=== PATIENT | female | born 1985 | race Caucasian/White ===

== ENCOUNTER 2017-02-01 18:41 | Observation (INO) ==
[2017-02-01 19:16] LABS: URINE CULTURE PL NEEDED? NO
[2017-02-01 19:30] LABS: BILIRUBIN URINE NEGATIVE (NEGATIVE); BLOOD URINE NEGATIVE (NEGATIVE); CLARITY CLEAR (CLEAR); COLOR YELLOW; LEUKOCYTES URINE TRACE (NEGATIVE); NITRITE URINE NEGATIVE (NEGATIVE); PROTEIN URINE TRACE mg/dL (NEGATIVE); SP GRAVITY URINE 1.005; URINE SOURCE CLEAN CATCH
[2017-02-01 19:31] LABS: URINE EPITHELIAL CELLS <10 /HPF (<10); URINE RBC <10 /HPF (<10); URINE WBC <10 /HPF (<10); UROBILINOGEN URINE 3+(8 mg/dL)
[2017-02-01 19:36] LABS: MANUAL DIFF NEEDED? NO
[2017-02-01 19:39] LABS: BASO% 0.1 % (0.0-0.8); EOS# 0.02 X1000 (0.0-0.7); EOS% 0.2 % (0.0-10.0); HEMATOCRIT 46.2 % (37.0-47.0); HEMOGLOBIN 15.9 g/dL (12.0-16.0); IMM GRAN# 0.02 X1000 (0.0-0.04); IMM GRAN% 0.2 % (0.0-0.5); LYMPH# 1.45 X1000 (1.2-3.4); LYMPH% 12.3 % (20.5-51.1); MCH 28.3 PG (27-31); MCHC 34.4 g/dL (33-37); MCV 82.2 FL (81-99); MONO# 0.53 X1000 (0.11-0.59); MONO% 4.5 % (1.7-9.3); MPV 9.3 FL (7.4-10.4); NEUT% 82.7 % (42.2-75.2); PLT 301 X1000 (130-400); RBC 5.62 XMIL (4.2-5.4)
[2017-02-01 20:02] LABS: AGAP 12; ALBUMIN 3.7 g/dL (3.5-5.0); ALKALINE PHOSPHATASE 88 U/L (32-104); AMYLASE 23 U/L (20-200); BUN 11 mg/dL (8-22); CALCIUM 9.1 mg/dL (8.8-10.2); CHLORIDE 95 mmol/L (98-107); COSMO 275; GOT 12 U/L (10-30); GPT 14 U/L (10-36); LIPASE 12 U/L (13-60); POTASSIUM 3.5 mmol/L (3.5-5.1); SODIUM 133 mmol/L (136-145); TCO2 26 mmol/L (25-35); TOTAL PROTEIN 7.7 g/dL (6.3-8.3)
--- NOTE | 2017-02-01 20:35 | Diag Imaging Result Doc PS360 ---
EXAM: FLAT/UPRIGHT ABD/1 VIEW CHEST HISTORY: abd pain TECHNIQUE: Four views COMPARISON: None. FINDINGS: The lungs are well expanded. No cardiomegaly. No pneumonia. No free air beneath the diaphragm. Mild scoliosis. No bowel obstruction. There is stool throughout the colon. No abnormal abdominal calcifications. IMPRESSION: Mild constipation Electronically signed by Heath Drake 02/01/2017 8:33 PM
--- NOTE | 2017-02-01 20:44 | PROVIDER DOCUMENTATION ---
HPI-Abdominal Pain/GI Problem - General Chief Complaint: Abdominal Pain Stated Complaint: ABD PAIN Time Seen by Provider: 02/01/17 20:15 Source: patient Allergies/Adverse Reactions: Patient Allergies Allergy/AdvReac Type Severity Reaction Status Date / Time Penicillins AdvReac HIVES Verified 02/01/17 19:09 Home Medications: Home Medication List Medication Instructions Recorded Confirmed Last Taken Type NK [No Home Medications] 02/01/17 02/01/17 Unknown History - History of Present Illness-ABD Nature of Presenting Problems: Patient is a pleasant 31 yrs old lady who has come with abdominal pain and diarrhea. She states she has been having abdominal pain since morning. It is cramping like in nature. It is in the epigastric region and umbilical. It is cramping like in nature , got sharp later. It is 5/10 in intensity now but goes to 10/10. No relieving factor noticed. Gets worse by movement or eating drinking something . No N/V. No other complaints. Abdominal Pain Onset Location: reports: epigastric, periumbilical Pain Radiation: reports: no radiation Quality of Pain: reports: aching, cramping, sharp Severity in ED: reports: moderate Onset/Duration: reports: gradual, 4-6 hours ago Timing: reports: still present Activities at Onset: reports: none Exposure to sick contacts?: No Modifying Factors: improves with: nothing Associated Symptoms: reports: diarrhea. denies: fever/chills, nausea, vomiting Last BM: this afternoon Review of Systems - Adult - REVIEW OF SYSTEMS - ADULT Constitutional: reports: no symptoms reported Eyes: reports: no symptoms reported Ears, Nose, Mouth & Throat: reports: no symptoms reported Cardiovascular: reports: no symptoms reported Respiratory: reports: no symptoms reported Gastrointestinal: reports: see HPI Genitourinary: reports: no symptoms reported Musculoskeletal: reports: no symptoms reported Integumentary: reports: no symptoms reported Neurological: reports: no symptoms reported Psychiatric: reports: no symptoms reported Endocrine: reports: no symptoms reported Hematologic/Lymphatic: reports: no symptoms reported Allergic/Immunologic: reports: no symptoms reported Past History - Adult - PAST MEDICAL HISTORY-ADULT Review of Records: reports: Nursing Assessment Review Major Childhood Illnesses: reports: denies history Cardiovascular: reports: denies history Respiratory: reports: denies history Gastrointestinal: reports: denies history Obstetrical/Gynecological: reports: denies history Genitourinary: reports: denies history Musculoskeletal: reports: denies history Neurological: reports: denies history Psychiatric: reports: denies history Endocrine/Immune: reports: denies history - SOCIAL HISTORY Smoking: denies Substance Use: none/never Alcohol Use Frequency: never Physical Exam-General - CONSTITUTIONAL General Appearance: appears well, alert, moderate distress - EYES Eyes: PERRL/EOMI, pink conjunctivae - HEAD, EARS, NOSE, MOUTH & THROAT HENMT: normocephalic/atraumatic, moist mucous membranes - NECK Neck: non-tender, full range of motion, supple - RESPIRATORY Respiratory: chest non-tender, lungs clear, normal breath sounds - CARDIOVASCULAR Cardiovascular: normal peripheral pulses, regular rate, rhythm - GASTROINTESTINAL (ABDOMEN) Abdominal Exam: soft, no organomegaly, no pulsatile mass, other (Tenderness noted in the epigastric region .) - LYMPHATIC Lymphatic: no adenopathy - MUSCULOSKELETAL Back Exam: normal inspection, no CVA tenderness Extremity: normal range of motion, non-tender - SKIN Integumentary: normal color, normal turgor, warm/dry - NEUROLOGIC Neurologic: grossly normal, no motor/sensory deficits - PSYCHIATRIC Psych/Mental Status: normal mood/affect, normal thought content, normal thought process Progress - PLAN OF CARE/RESULTS Progress/Plan/Lab Results: Vital Signs - 8 hr 02/01/17 19:05 Temperature 98 F Pulse Rate 114 H Respiratory Rate 18 Blood Pressure 138/89 O2 Sat by Pulse Oximetry 98 Laboratory Results - last 24 hr 02/01/17 02/01/17 02/01/17 19:10 19:10 19:26 WBC RBC Hgb Hct MCV MCH MCHC RDW Std Deviation Plt Count MPV Immature Gran % (Auto) Neut % (Auto) Lymph % (Auto) [place] % (Auto) Eos % (Auto) Baso % (Auto) Immature Gran # (Auto) Neut # (Auto) Lymph # (Auto) [place] # (Auto) Eos # (Auto) Baso # (Auto) Sodium 133 L Potassium 3.5 Chloride 95 L Carbon Dioxide 26 Anion Gap 12 BUN 11 Creatinine 0.6 Estimated GFR/1.73 m2 > 60 BUN/Creatinine Ratio 18 Glucose 263 H Calculated Osmolality 275 Calcium 9.1 Total Bilirubin 0.80 AST 12 ALT 14 Alkaline Phosphatase 88 Total Protein 7.7 Albumin 3.7 Globulin 4.0 Albumin/Globulin Ratio 1.0 Amylase 23 Lipase 12 L Urine Source CLEAN CATCH Urine Color YELLOW Urine Clarity CLEAR Urine pH 7.0 Ur Specific [place] 1.005 Urine Protein TRACE A Urine Ketones 2+(Moderate) A Urine Blood NEGATIVE Urine Nitrite NEGATIVE Urine Bilirubin NEGATIVE Urine Urobilinogen 3+(8 mg/dL) Urine Microscopic RBC <10 Urine WBC TRACE A Urine Microscopic WBC <10 Ur Epithelial Cells <10 Urine Glucose 3+(500 mg/dL) A Urine Test NEGATIVE 02/01/17 19:26 WBC 11.80 H RBC 5.62 H Hgb 15.9 Hct 46.2 MCV 82.2 MCH 28.3 MCHC 34.4 RDW Std Deviation 12.6 Plt Count 301 MPV 9.3 Immature Gran % (Auto) 0.2 Neut % (Auto) 82.7 H Lymph % (Auto) 12.3 L [place] % (Auto) 4.5 Eos % (Auto) 0.2 Baso % (Auto) 0.1 Immature Gran # (Auto) 0.02 Neut # (Auto) 9.77 H Lymph # (Auto) 1.45 [place] # (Auto) 0.53 Eos # (Auto) 0.02 Baso # (Auto) 0.01 Sodium Potassium Chloride Carbon Dioxide Anion Gap BUN Creatinine Estimated GFR/1.73 m2 BUN/Creatinine Ratio Glucose Calculated Osmolality Calcium Total Bilirubin AST ALT Alkaline Phosphatase Total Protein Albumin Globulin Albumin/Globulin Ratio Amylase Lipase Urine Source Urine Color Urine Clarity Urine pH Ur Specific [place] Urine Protein Urine Ketones Urine Blood Urine Nitrite Urine Bilirubin Urine Urobilinogen Urine Microscopic RBC Urine WBC Urine Microscopic WBC Ur Epithelial Cells Urine Glucose Urine Test Orders Category Date Time Status FLAT/UPRIGHT ABD/1 VIEW CHEST [RAD] Stat Exams 02/01/17 19:10 Completed AMYLASE [CHEM] Stat Lab 02/01/17 19:26 Completed CBC WITH DIFF [HEME] Stat Lab 02/01/17 19:26 Completed COMPREHENSIVE METABOLIC PANEL [CHEM] Stat Lab 02/01/17 19:26 Completed LIPASE [CHEM] Stat Lab 02/01/17 19:26 Completed TEST-URINE [PREG] Stat Lab 02/01/17 19:[address] W/POSS RFLX CULT [URINALYSIS] Stat Lab 02/01/17 19:10 Completed Lipase is significantly elevated. CT abd shows possible pancreatitis along with renal stone and other findings. Started on IV fluids . NPO. Admitting to inpatient. Starting on Zosyn per Dr. Sánchez request. Result Diagrams: 02/01/17 19:26 02/01/17 19:26 Departure - Departure Date of Disposition Decision: 02/01/17 Time of Disposition Decision: 22:06 DIAGNOSIS: Pancreatitis Disposition: ADMITTED INPATIENT 09 Certified Medical Emergency: Emergent Condition: Stable Referrals and Follow-Ups: Sreekanth Regan MD [Primary Care Provider] - - Critical Care Note This patient required my direct & personal management of CC.: No Attestation - Physician/ NINA Attestation Patient care was provided by Advanced Practice Provider:: No The physician spent face to face time with patient:: Yes Advanced Practice Provider documentation review:: Supervising physician onsite and consulted in the evaluation and care of this patient. The physician did have a face to face encounter with the patient.
[2017-02-01] MEDS ORDERED: DILAUDID IM ONE (20:48)
[2017-02-01] MEDS ORDERED: ZOFRAN PO ONE (20:48)
[2017-02-01] MEDS ORDERED: ZOFRAN ODT ONE (20:55)
--- NOTE | 2017-02-01 21:27 | Diag Imaging Result Doc PS360 ---
EXAM: CT ABDOMEN/PELVIS W/O CONTRAST HISTORY: abd pain TECHNIQUE: CT abdomen and pelvis without contrast. Dose reduction protocol. COMPARISON: None. FINDINGS: Normal noncontrasted liver, spleen, pancreas, gallbladder, and adrenal glands. No renal stones or hydronephrosis. Normal aorta. Normal appendix. No abscess. Mild distention to several small bowel loops in the left upper abdomen. There is stool throughout the colon. The urinary bladder is only mildly distended. Normal uterus. A small amount of free fluid is found in the pelvis. Neither ovary is enlarged. Mild scoliosis IMPRESSION: 1.Dilated small bowel loops filled with air and fluid suspicious for enteritis 2.No renal stones or hydronephrosis Electronically signed by Heath Drake 02/01/2017 9:24 PM
[2017-02-01] MEDS ORDERED: DILAUDID IM PRN ×2 (22:07→22:32)
[2017-02-01] MEDS ORDERED: NS 1,000 ML IV ONE ×2 (22:07→22:28)
[2017-02-01] MEDS ORDERED: ZOFRAN ODT PO ONE (22:29)
[2017-02-01] MEDS ORDERED: LEVAQUIN 500 MG/D5W 500 MG/100 ML IVPB IV SCH (22:45)
[2017-02-02] MEDS: ZOFRAN IV PRN ×4 (06:09→23:24)
[2017-02-02] MEDS ORDERED: DILAUDID IM PRN (06:26)
[2017-02-02] MEDS: TORADOL IV PRN ×3 (08:50→23:24)
[2017-02-02 09:12] LABS: HEMATOCRIT 40.3 % (37.0-47.0); HEMOGLOBIN 13.7 g/dL (12.0-16.0); MCH 28.2 PG (27-31); MCV 82.9 FL (81-99); MPV 9.3 FL (7.4-10.4); RBC 4.86 XMIL (4.2-5.4)
[2017-02-02 09:22] LABS: HEMOGLOBIN A1C 10.4 % (4.8-6.0)
[2017-02-02 09:32] LABS: AGAP 10; ALBUMIN 3.3 g/dL (3.5-5.0); ALKALINE PHOSPHATASE 68 U/L (32-104); AMYLASE 35 U/L (20-200); BUN 12 mg/dL (8-22); CALCIUM 8.3 mg/dL (8.8-10.2); CHLORIDE 101 mmol/L (98-107); COSMO 282; GOT 8 U/L (10-30); GPT 10 U/L (10-36); LIPASE 26 U/L (13-60); POTASSIUM 3.3 mmol/L (3.5-5.1); SODIUM 136 mmol/L (136-145); TCO2 25 mmol/L (25-35); TOTAL PROTEIN 6.6 g/dL (6.3-8.3)
[2017-02-02] MEDS ORDERED: PHENERGAN IV PRN (17:02)
[2017-02-02] MEDS ORDERED: SODIUM CHLORIDE 0.9% INJ PRN (17:02)
[2017-02-02] MEDS: NS 1,000 ML IV SCH (17:30)
[2017-02-02] MEDS: FLAGYL 500 MG/NS 500 MG/100 ML IVPB IV SCH ×2 (17:30→23:24)
[2017-02-02] MEDS ORDERED: PROTONIX IV SCH (18:00)
[2017-02-02] MEDS ORDERED: LEVAQUIN 750 MG/D5W 750 MG/150 ML IVPB IV SCH (18:00)
[2017-02-02] MEDS ORDERED: SODIUM CHLORIDE 0.9% INJ SCH (18:00)
[2017-02-02] MEDS: HUMALOG DOSE (PARKWAY) SUBQ SCH (20:00)
--- NOTE | 2017-02-02 22:30 | HISTORY AND PHYSICAL ---
CHIEF COMPLAINT: Abdominal pain and diarrhea. HISTORY OF PRESENT ILLNESS: This is a 31-year-old female who presented to the emergency room complaining of about 12 hours of abdominal pain and diarrhea. She actually described this pain as cramping in nature radiating from epigastric to the umbilical area. She rated it as a 5/10 to 10/10 prior to relief after pain medication. She did state that this pain does increase with movement or any p.o. intake. She has accompanying symptoms of diarrhea. She denied any black or bloody vomitus, black or bloody stools. She was found to have a white count of 11.8. CT of the abdomen and pelvis was performed in the emergency room and she was found to have dilated small bowel loops filled with air and fluid suspicious for enteritis. She is being admitted for further evaluation and treatment. PAST MEDICAL HISTORY: 1. Bipolar disorder. 2. Noncompliance. PAST SURGICAL HISTORY: . Tubal ligation. Social History SOCIAL HISTORY: She denies alcohol, tobacco, or illicit drug use. ALLERGIES: Penicillin which causes hives. HOME MEDICATIONS: Denies. REVIEW OF SYSTEMS: A 14 point review of systems is discussed with patient with pertinent positives stated in HPI. She denies chest pain, palpitations, dizziness, syncope, black or bloody vomitus, black or bloody stools, any hematuria, dysuria, frequency, urgency. PHYSICAL EXAMINATION: GENERAL: This is a 31-year-old female who is sitting in the bed, in no distress. VITAL SIGNS: Blood pressure is 109/65, a heart rate of 85, respirations are 20 , temperature is 97.9 degrees with room air saturations 97-98%. HEENT: Head is normocephalic, atraumatic. Pupils equal, round, react to light. EOMs are intact. Sclerae anicteric. Mucous membranes are dry. NECK: Supple. Trachea midline. CARDIOVASCULAR: Regular rate and rhythm. S1, S2 appreciated. PULMONARY: Breath sounds are clear. No increased work of breathing noted. GASTROINTESTINAL: Abdomen is soft, nondistended, with some epigastric tenderness. Bowel sounds are present in all 4 quadrants. BACK: No CVAT. No spine tenderness. MUSCULOSKELETAL: Good range of motion of joints. EXTREMITIES: No clubbing, cyanosis, or edema. Calves nontender. Pulses are palpable x4. NEUROLOGIC: She is alert and oriented x3. DIAGNOSTICS: WBC is 11.8 with hemoglobin 15.9, hematocrit 46.2, platelets of 301,000. Sodium is 133, potassium 3.5, BUN 11, creatinine 0.6 with a glucose of 263. CT of the abdomen and pelvis revealed dilated small bowel loops with air-fluid suspicious for enteritis. ASSESSMENT AND PLAN: 1. Dilated small bowel with enteritis. 2. Abdominal pain secondary to #1. 3. Leukocytosis secondary to #1, most likely. 4. New onset diabetes mellitus with a hemoglobin A1c of 10.4. PLAN: She will be admitted, placed on telemetry. She will remain NPO. We will give IV hydration along with pain and nausea control. We will start Flagyl and Levaquin for IV antibiotic coverage. We will trend her labs in the morning. Pattern blood glucose with sliding scale insulin. Once the patient starts eating, then we can advance to an antidiabetic regimen. We will use Protonix for GI prophylaxis. We can trend over to p.o. Prilosec once she is taking p.o. medications. SCDs for DVT prophylaxis. Further treatments pending hospital course. Dictated by XANDER Carvalho for Alfredo Pina MD cc: XANDER Carvalho MD [facility]
--- NOTE | 2017-02-03 05:27 | PROGRESS NOTE ---
DATE: 02/02/2017 ADDENDUM REPORT: Patient seen and examined by myself. Full note dictated and discussed with nurse practitioner. The patient notes that she has had severe stomach cramps off and on for a year. Has had several weeks of diarrhea. Notes the cramping was somewhat worsen therefore she came to the emergency department. On physical, her vital signs are stable currently. She is currently on no antibiotics. cc: Alfredo Pina MD
[2017-02-03] MEDS: NS 1,000 ML IV SCH ×3 (05:50→17:16)
[2017-02-03 05:55] LABS: HEMOGLOBIN 12.7 g/dL (12.0-16.0); MCH 28.3 PG (27-31); MCHC 33.4 g/dL (33-37); MCV 84.8 FL (81-99); MPV 9.1 FL (7.4-10.4); RBC 4.48 XMIL (4.2-5.4)
[2017-02-03] MEDS: HUMALOG DOSE (PARKWAY) SUBQ SCH ×3 (06:07→17:16)
[2017-02-03 06:08] LABS: AGAP 9; ALBUMIN 2.9 g/dL (3.5-5.0); ALKALINE PHOSPHATASE 58 U/L (32-104); BUN 18 mg/dL (8-22); CALCIUM 8.1 mg/dL (8.8-10.2); CHLORIDE 104 mmol/L (98-107); COSMO 280; GOT 10 U/L (10-30); GPT 9 U/L (10-36); MAGNESIUM 1.8 mg/dL (1.5-2.7); POTASSIUM 3.1 mmol/L (3.5-5.1); SODIUM 137 mmol/L (136-145); TCO2 25 mmol/L (25-35); TOTAL PROTEIN 6.2 g/dL (6.3-8.3)
[2017-02-03] MEDS: ZOFRAN IV PRN ×2 (06:08→10:51)
[2017-02-03] MEDS: TORADOL IV PRN (06:08)
[2017-02-03] MEDS: FLAGYL 500 MG/NS 500 MG/100 ML IVPB IV SCH ×2 (06:08→13:23)
[2017-02-03 12:02] VITALS: BP 122/80
[2017-02-03] MEDS ORDERED: LACTULOSE PO ONE (12:40)
[2017-02-03] MEDS ORDERED: FLUZONE QUAD 2017-2018 SYRINGE IM ONE (15:04)
[2017-02-03] MEDS ORDERED: REGLAN PO SCH (16:00)
[2017-02-04] MEDS ORDERED: JANUVIA PO SCH (09:00)
--- NOTE | 2017-02-04 13:26 | DISCHARGE SUMMARY ---
PLEASE DELETE MTDD
--- NOTE | 2017-02-04 13:36 | DISCHARGE SUMMARY ---
ADMISSION DATE: 02/01/2017 DISCHARGE DATE: 02/03/2017 PRIMARY CARE PHYSICIAN: Dr. Regan. CHIEF COMPLAINT: Abdominal pain and diarrhea. DIAGNOSES: 1. New onset diabetes mellitus with hemoglobin A1c of 10.4. 2. Leukocytosis resolved. 3. Abdominal pain resolving. 4. Nausea. 5. Dilated small bowel possibly enteritis. 6. Constipation. DIAGNOSTICS: 02/01/2017 abdominal x-ray revealed mild constipation. 02/01/2017 CT of the abdomen and pelvis revealed dilated small bowel loops feel with air and fluid suspicious for enteritis and no renal stones or hydronephrosis. HOSPITAL COURSE: Ms Perez presented to the emergency room complaining of abdominal pain and diarrhea. CT revealed dilated small bowel possibly with enteritis. She is also noted to have constipation for which she was given lactulose and she has had a bowel movement. She was found to have a hemoglobin A1c of 10 was discussed with the patient that her abdominal pain, her nausea could very well be related to this elevated A1c and it was imperative that she began medications for her increased blood sugars, work on decreasing her A1c. She was placed on Lantus 10 units at night. She has been instructed to take daily fasting blood sugars and a 2nd blood sugar sometime throughout the day, log these and take these to Dr. Regan at her followup visit for further diabetic dosing. She was given a prescription for Januvia 50 mg and as she has been very nauseated which she will check her blood sugars and on Monday or Monday if due blood sugars are still up around 200 she will start Januvia. She has been give Reglan 5 mg a.c. and at bedtime and she has been instructed if she develops diarrhea to take 2.5 or decrease her doses throughout the day. Thankfully she has had no further diarrhea and she is tolerating liquids. DISCHARGE MEDICATIONS: Januvia 50 mg p.o. daily, Reglan 5 mg p.o. a.c. and at bedtime, Lantus 10 units subcutaneous at bedtime as well as a prescription for a blood glucose meter with testing strips. PHYSICAL EXAMINATION: Cardiovascular: Regular rate and rhythm S1, S2 appreciated. Pulmonary: Breath sounds are clear. No increased work of breathing noted. Gastrointestinal: Soft, nontender, nondistended. Bowel sounds in all 4 quadrants. Neurologic: She is alert, oriented x3. Cranial nerves 2-12 grossly intact. DISCHARGE FOLLOWUP: Dr. Regan in the next 2-3 weeks. She is being discharged home in stable condition with family members. TIME SPENT: This is a greater than 30 minute discharge. Dictated by XANDER Carvalho for Alfredo Pina MD cc: XANDER Carvalho MD
--- NOTE | 2017-02-04 16:27 | DISCHARGE SUMMARY ---
ADMISSION DATE: 02/01/2017 DISCHARGE DATE: 02/03/2017 ADDENDUM: Patient seen and examined by myself. Full note dictated by nurse practitioner. Patient is noted to have new onset diabetes with an A1c elevated at 10. Discussed with her that her abdominal pain and constipation very likely are gastroparesis secondary to such an elevated blood sugar. Certainly would prefer that she stay in the hospital although she is adamant that she goes home and if she gets worse she will come back. We will start her on Lantus. Discussed with her how to use this. We will start at 10 units, we will increase as needed. We will add Januvia. Will not start Glucophage due to her nausea. Further orders as needed. cc: Alfredo Pina MD
== END 2017-02-03 18:31 | disposition home or self-care (01) ==
LOC: P.ED 18:41 → INTOOBSV 18:42 → P.MEDSURG 23:07
PROVIDERS: ATTEND Family Medicine